=== PATIENT | female | born 1970 | race Caucasian/White ===

== ENCOUNTER 2018-01-31 10:13 | Inpatient (IN) | payer OTHER, SELFPAY ==
[2018-01-29 11:29] LABS: Hematocrit 38.2 % (37-47); Hemoglobin 12.6 g/dl (12.0-15.0); Mean Platelet Vol. 9.8 fl (6.2-12.0); Platelet Count 359 K/mm3 (150-450); RBC Distribution Width CV 13.4 % (11.6-14.6); Red Blood Count 4.34 M/mm3 (4.2-5.4); Scan Indicated on CBC? Y/N NO
[2018-01-29 11:35] LABS: International Normalized Ratio 1.1; Prothrombin Time (Protime)PT. 13.8 SECONDS (11.7-14.9)
[2018-01-29 11:36] LABS: Partial Thromboplast Time 26.8 Seconds (24.1-36.2)
[2018-01-31] VITALS (11 sets, daily range): BP systolic 109–146; BP diastolic 69–90; PULSE 65–100; RESP 12–18; TEMP 36–37.1; O2SAT 94–100; BMI 28.8
[2018-01-31] MEDS: Phenazopyridine 95 MG Tablet 190 MG PO (06:34)
[2018-01-31] MEDS: Acetaminophen 500 MG Tablet 1000 MG PO ×3 (06:34→21:19)
[2018-01-31] MEDS: Celecoxib 200 MG Capsule 400 MG PO (06:35)
[2018-01-31 07:12] LABS: Internal QC Validated? YES +Cl - CLEAR BKGD; Pregnancy, Urine Negative Negative
--- NOTE | 2018-01-31 07:30 | HYST_PTH ---
PATIENT: VENICE HENDRICKS LOC: [facility] U#:[id number] AGE/SX: 47/F ROOM: AR305 RE01/31/[address]: Dr. Lizzy Glass MD : 1970 BED: 1 DIS: 02/09/2018 SPEC #: [id number] RECD: 01/31/18 11:23 STATUS: ERIC REMayra #: [id number] TIBURCIO: 01/31/18 07:[address]: Lizzy Glass DEPT: SURGICAL PATHOLOGY RECD BY: Frederick Naranjo ENTERED: 01/31/18 11:23 SP TYPE: HYSTERECT OTHR DR: Dr. Luis Babin, DO Tissues: Uterus, NOS Procedures: Surgery Specimen Level V HEADER OPERATION: Attempted laparoscopic hysterectomy, total abdominal hysterectomy, bilateral salpingectomy and right oophorectomy PRE-OP DIAGNOSIS: Menorrhagia, failed ablation, adenomyosis of the uterus, intramural uterine fibroid TISSUE SUBMITTED: Uterus, cervix, bilateral fallopian tubes MICROSCOPIC DIAGNOSIS Uterus, cervix and bilateral fallopian tubes and right ovary, total abdominal hysterectomy, bilateral salpingectomy and right oophorectomy: Cervix ? mild chronic cystic cervicitis. Endometrium ? secretory endometrium. Myometrium ? intramural leiomyoma (5.2 cm in greatest dimension). - Adenomyosis. Bilateral fallopian tubes - no pathologic diagnosis. Right ovary - no pathologic diagnosis. Bilateral paratubal cysts. GERI:jackeline 02/01/18 MICROSCOPIC DESCRIPTION Slides are reviewed. GROSS DESCRIPTION Received in fixative is one container labeled with the patient's name and designated uterus. The specimen consists of a uterus with detached cervix measuring 13 x 8 x 7.7 cm and weighing 268 gm. The endocervical canal measures 3.8 cm in length and is grossly unremarkable. The elongated endometrial cavity measures 5.5 cm in length and 3 cm in width. The reddish-aquino endometrium measures up to 0.2 cm in thickness. The myometrium measures 2.2 cm in average thickness and is distorted by a single, intramural, rubbery pink-aquino mass measuring 5.2 x 4.5 cm. Serial sections of the mass reveal a rubbery cut surface without areas of cyst formation, necrosis or hemorrhage. Also present in the container is a right ovary with adjacent right fallopian tube. The ovary measures 3.4 x 2 x 1.2 cm and serial sections reveal a blood-filled cyst measuring 2.2 cm in greatest dimension. The adjacent right fallopian tube measures 5 cm in length and 0.7 cm in average diameter. No tubo-ovarian adhesions are seen and fimbriated end has a normal villous appearance. In the mid portion of the soft tissue of the fallopian tube is a smooth, glistening cyst measuring 1.3 cm and containing clear fluid. Also present free in the container is the left fallopian tube which is similar in appearance to right tube and measures 6 cm in length and 1 cm in average diameter. The mid portion likewise contains a smooth, glistening cyst containing clear fluid. The cyst measures 1 cm in greatest dimension. Early Childhood Specialist sections are submitted in ten cassettes as follows: 1 - anterior cervix, 2 - posterior cervix, 3 & 4 - anterior uterine wall, 5 & 6 - posterior uterine wall, 7 & 8 ? myometrial mass, 9 ? right fallopian tube, ovary and paratubal cyst, 10- left fallopian tube and paratubal cyst. / AM:jackeline 01/31/18 TC:1 CPT: 66988
[2018-01-31] MEDS: Clindamycin 900 MG/50 ML BAG 75 MG IV (07:35)
[2018-01-31] MEDS: Lubricating Jelly 60 GM Tube 30 GM TOPICAL (07:56)
[2018-01-31] MEDS: Bupivacaine Mpf 0.5% 30 ML VIAL (08:22)
--- NOTE | 2018-01-31 10:18 | PCM.OPRPT ---
Report of Operation Date of Procedure: 01/31/18 Pre-Operative Diagnosis: menorrhagia, intramural uterine fibroid, adenomyosis of the uterus, post ablation syndrome (s/p endometrial ablation) Post-Operative Diagnosis: Same + endometriosis of bilateral tubes and ovaries and peritoneal surfaces of pelvis Surgery/Procedure Performed:: TLH convereted to [place], bilateral salpingectomy, right oophorectomy and cystoscopy Description of Surgical Findings:: Enlarged boggy uterus, large fundal fibroid. Ovaries and tubes bilaterally adhered to the pelvic sidewall and posterior uterus. Endometriosis noted of both tubes and ovaries and the posterior cul-de-sac and pelvic sidewalls. Posterior cul-de-sac was obliterated. consulting database administrator: Mita Lopez consulting database administrator: Yue Marin Type of Anesthesia:: General Anesthesiologist: Corbin Rodriguez Special Medications: none Specimen's removed: uterus, cervix, bilateral tubes, right ovary Drains: allison Estimated Blood Loss (mL): 350 Fluids Replaced: 2100 cc Description of Procedure: The patient was taken to the operating room where she was prepped and draped in the dorsal lithotomy position. Her arms were tucked to the side and padded and her legs were placed in the yellowfin stirrups. The VAC pad was used to secure the patient. Care was taken to ensure that she was placed in a neurologically safe and neutral position. A weighted speculum was placed in the vagina and the anterior lip of the cervix was grasped with a single-tooth tenaculum. The cervix sounded to 5 centimeters. Could not enter the endometrial cavity with the uterine manipulator due to her previous endometrial ablation. It was inserted to 5 cm and the balloon was inflated. Two 0 Vicryl sutures were secured to the cervix at 3 and 9:00. The medium V CARE placed into the cervix and the balloon inflated. The stay sutures were placed through the cup and secured down to the cervix. Once the V-Care was secured to the cervix the Allison catheter was placed to straight drain. Attention was turned to the abdominal portion of the case. Before skin incisions were made they were infiltrated with 0.5% Marcaine solution for local anesthetic. A 5 mm [intraumbilical] incision was made and while tenting the anterior abdominal wall up with towel clamps a 5 mm blade less trocar and sleeve were advanced directly into the peritoneal cavity. Peritoneal placement was confirmed with the laparoscope the pneumoperitoneum was created, and the underlying abdominal contents were intact. The patient was placed in Trendelenburg and the above findings were noted. Right and left lateral 5 mm trochars were placed under direct visualization without difficulty. After some manipulation of the uterus the decision was made to place a fourth port in the left upper quadrant to place a 3 to help with uterine manipulation. The bowel was swept away and the above findings were noted. We attempted to dissect the ovaries off the posterior uterine wall with blunt and sharp dissection. We are having difficulty manipulating the uterus due to its bulk size and the adhesions from the endometriosis. In addition the uterine manipulator was not able to be placed to the fundus due to her previous ablation and the location of the fibroids. At this point, the decision was made to turn to total abdominal hysterectomy visualization and manipulation of the instruments was inadequate to proceed further laparoscopically. The bladder flap was rechecked and found to be adequately down. The monopolar tip of the LigaSure device was then used to enter the anterior vagina. The vaginal manipulator cup was noted in the vaginal colpotomy incision was made circumferentially around the cup. When the 3 and 9:00 positions of the cervicovaginal junction were reached these were clamped sealed and transected with the LigaSure device to secure any small remaining vessels. At this point the pedicles were hemostatic from above and attention was turned to the vaginal portion of the case again. The uterus was brought intact out through the vaginal colpotomy incision along with the tubes There is some bleeding from the left vaginal cuff angle and this was grasped with an Allis clamp. Vaginal angle sutures were placed on both sides with 0 Vicryl sutures and care was taken to ensure that the uterosacral ligament was secured into this stitch. The remainder the vagina was then closed horizontally with interrupted 0 Vicryl sutures. The cuff was hemostatic vaginally. The Allison catheter was removed and a cystoscopy was performed. The bladder appeared normal and was intact. Both ureteral orifices were noted and both ureteral jets were seen. The cystoscope was removed and the Allison catheter was placed back to straight drain. A sponge stick was placed in the vagina to help place traction against the vaginal cuff and the pneumoperitoneum was re-created. The suction senior licensing manager was used to remove any blood and clots from the peritoneal cavity. The pedicles were reexamined and found to be hemostatic. The vaginal cuff was hemostatic. Some Jj was placed over the cuff and the pedicles and no active bleeding was noted through the Jj. The right and left lateral ports were taken out and the sites were hemostatic. The pneumoperitoneum was released and even under low pressure there was no bleeding of any of the pedicles are vaginal cuff. The umbilical port was removed. The umbilical skin incisions were closed with Monocryl suture and skin glue by [Dr. Hutchins]. The vaginal instruments were removed by me and a vaginal sweep was completed by me. The surgery was performed by me with assistance other than the portions dictated as above. There were no qualified residents available for this procedure. All sponge lap and needle counts were correct and the patient was transferred to the recovery room in stable condition. Grafts/Implants Used: none - Complications none - Admit VTE Documentation VTE Present on Admission: No VTE Mechan Device Prophylaxis: SCD's VTE Pharm Prophylaxis ordered?: Yes
[2018-01-31] MEDS: Ketorolac 30 MG/ML Syringe IV ×3 (11:16→23:31)
[2018-01-31] MEDS: Ondansetron 4 MG/2 ML Vial IV (13:46)
[2018-01-31] MEDS: Lactated Ringers 1,000 ML 100 ML IV (14:56)
[2018-01-31] MEDS: HYDROmorphone 1 MG/ML Syringe IV (15:49)
[2018-01-31] MEDS: proMETHazine 25 MG/ML Syringe 12.5 MG IV (18:07)
[2018-01-31] MEDS: 0.9% NaCl Peripheral Flush Adult/Peds IV (18:08)
--- NOTE | 2018-01-31 19:27 | PCM.PN.OB ---
Subjective: Pain controlled. No N/V. Very tired. No SOB/CP - Physical Exam General: Cooperative, No apparent distress, - - awakens easily Abdomen: Soft, Non-Distended, Tender - appropriately Skin: Incision - bandage clean, dry and intact. Small incisions intact w/ skin glue Vital Signs Temp Pulse Resp BP Pulse Ox 98.7 F 100 16 122/72 H 95 01/31/18 15:54 01/31/18 15:54 01/31/18 15:54 01/31/18 15:54 01/31/18 15:54 Oxygen Delivery Method Room Air Weight: 80.9 kg Body Mass Index (BMI) 28.8 Intake and Output for Last 24 Hours 01/29/18 01/30/18 01/31/18 23:59 23:59 23:59 Intake Total 3104 / 3104 Output Total 600 / 600 Balance 2504 / 2504 Laboratory Tests Past 24 Hrs 01/31/18 06:50 Urine Test Negative Medical Necessity - Tobacco Use Smoking Status: Never smoker Assessment/Plan POD#0 s/p TLH converted to [place]/bilateral salpingectomy, right oophorectomy due to fibroids, adenomyosis and endometriosis w/ adhesions operative course and findings reviewed routine care cbc in am february d/c tomorrow if does well
[2018-01-31] MEDS: Docusate Sodium 100 MG Capsule PO (21:19)
[2018-01-31] MEDS: Senna/Docusate Sodium 1 Tablet PO (21:19)
[2018-02-01] MEDS: 0.9% NaCl Peripheral Flush Adult/Peds IV ×6 (01:05→21:34)
[2018-02-01] MEDS: HYDROmorphone 1 MG/ML Syringe IV ×3 (01:05→21:34)
[2018-02-01] MEDS: Lactated Ringers 1,000 ML 100 ML IV (01:05)
[2018-02-01 02:15] VITALS: BP 94/52; PULSE 82; RESP 16; TEMP 37.1; O2SAT 97
[2018-02-01] MEDS: Ketorolac 30 MG/ML Syringe IV (05:37)
[2018-02-01] MEDS: Enoxaparin 40 MG/0.4 ML Syringe SC (05:37)
[2018-02-01] MEDS: Acetaminophen 500 MG Tablet 1000 MG PO ×2 (06:56→15:15)
[2018-02-01 07:05] VITALS: O2SAT 98
[2018-02-01 07:05] LABS: Hematocrit 34.1 % (37-47); Hemoglobin 11.3 g/dl (12.0-15.0); Mean Corp Hgb Conc 33.1 g/gl (32-36); Mean Corpuscular Volume 87.7 fL (81-99); Mean Platelet Vol. 9.7 fl (6.2-12.0); Platelet Count 341 K/mm3 (150-450); RBC Distribution Width CV 13.7 % (11.6-14.6); RBC Distribution Width SD 43.7 fl (35.1-43.9); Red Blood Count 3.89 M/mm3 (4.2-5.4); White Blood Count 11.6 K/mm3 (4.4-11.0)
[2018-02-01 07:06] LABS: Scan Indicated on CBC? Y/N NO
[2018-02-01 08:21] VITALS: BP 101/55; PULSE 77; RESP 16; TEMP 36.7; O2SAT 98
[2018-02-01] MEDS: Docusate Sodium 100 MG Capsule PO (08:28)
[2018-02-01] MEDS: Senna/Docusate Sodium 1 Tablet PO (08:28)
--- NOTE | 2018-02-01 08:49 | PCM.PN.OB ---
Subjective: pain well controlled, average lochia, no N/V. No CP or SOB - Physical Exam General: Alert, Cooperative, No apparent distress Abdomen: Soft, Distended - mildly, softly, Tender - appropriately Skin: Incision - they are clean, dry and intact w/ skin glue Vital Signs Temp Pulse Resp BP Pulse Ox 98.1 F 77 16 101/55 L 98 02/01/18 08:21 02/01/18 08:21 02/01/18 08:21 02/01/18 08:21 02/01/18 08:21 Oxygen Delivery Method Room Air Weight: 80.9 kg Body Mass Index (BMI) 28.8 Intake and Output for Last 24 Hours 01/30/18 01/31/18 02/01/18 23:59 23:59 23:59 Intake Total 4512 / 4512 874 / 874 Output Total 1250 / 1250 1350 / 1350 Balance 3262 / 3262 -476 / -476 Laboratory Tests Past 24 Hrs 02/01/18 06:10 WBC 11.6 H RBC 3.89 L Hgb 11.3 L Hct 34.1 L MCV 87.7 MCH 29.0 MCHC 33.1 RDW 13.7 RDW Differential 43.7 Plt Count 341 MPV 9.7 Medical Necessity - Tobacco Use Smoking Status: Never smoker Assessment/Plan POD#1 doing well llikely d/c home after lunch if does well w/ ambulation and po intake. D/c instructions reveiwed. questions answered
--- NOTE | 2018-02-01 08:51 | PCM.DC.AHY ---
Discharge Diet: No Restrictions Discharge Activity: Return to Normal Activity, May Not Drive - while taking narcotic pain medications., May Shower May resume sexual activity in: 6-8 weeks Call your doctor if your incision/area has: Continuous Slow Oozing, Sudden Increased Bleeding, Increased Pain/ Swelling, Increased Redness, Foul Smelling Discharge Call your doctor if you observe: Fever of 101 or Higher, Inability to urinate, Inability to have a bowel movement, Using more than one pad per hour Cleanse incision/area with: Soap & Water, - - your incisions have skin glue, it can get wet, pat it dry. Leave it on for 10-14 days Allergies/Adverse Reactions: Allergies nitrofurantoin [From Macrobid] Allergy (Verified 01/24/18 09:40) Hives paroxetine [From Paxil] Allergy (Verified 01/24/18 09:40) Hives Penicillins Allergy (Verified 01/24/18 09:40) Hives Sulfa (Sulfonamide Antibiotics) Allergy (Verified 01/24/18 09:40) Hives Medications to take at Discharge Acetaminophen [Tylenol] 500 - 1,000 mg PO Q6H PRN PRN 01/24/18 Lorazepam [Ativan] 0.5 mg PO DAILY PRN PRN 01/24/18 Naproxen Sodium [Naproxen Sodium Ds] 550 mg PO BID PRN PRN 01/24/18 Tranexamic Acid 1,300 mg PO TID PRN 01/24/18 Primary Care Physician: Luis Babin DO [Primary Care Provider] - Please Follow Up With: Lizzy Glass MD - [phone] When: 1-2 and 6 weeks
--- NOTE | 2018-02-01 12:16 | CASEMGMT ---
Chart review completed at this time. Patient was admitted for s/p [place]. Patient lives at home with who can assist with care. No discharge needs identified at this time. RN CM will remain available should discharge needs arise.
[2018-02-01] MEDS: Ketorolac 10 MG Tablet PO (12:41)
[2018-02-01] MEDS: oxyCODONE 5 MG Tablet PO (12:41)
[2018-02-01 13:54] VITALS: BP 110/69; PULSE 85; RESP 20; TEMP 36.7; O2SAT 98
[2018-02-01] MEDS: Ondansetron 4 MG/2 ML Vial IV ×2 (17:06→21:34)
[2018-02-01 17:09] VITALS: BP 124/73; PULSE 85; RESP 20; TEMP 36.9; O2SAT 98
[2018-02-01] MEDS: Lactated Ringers 1,000 ML 75 ML IV (17:54)
[2018-02-01] MEDS: proMETHazine 25 MG/ML Syringe 12.5 MG IV (18:05)
[2018-02-01 20:55] VITALS: BP 105/65; PULSE 82; RESP 18; TEMP 36.8; O2SAT 97
[2018-02-02] VITALS (7 sets, daily range): BP systolic 103–135; BP diastolic 68–79; PULSE 70–99; RESP 16–18; TEMP 36.6–37.6; O2SAT 92–95
[2018-02-02] MEDS: 0.9% NaCl Peripheral Flush Adult/Peds IV ×2 (02:53→06:23)
[2018-02-02] MEDS: proMETHazine 25 MG/ML Syringe 12.5 MG IV ×3 (02:53→18:01)
[2018-02-02] MEDS: Enoxaparin 40 MG/0.4 ML Syringe SC (06:23)
[2018-02-02] MEDS: Ondansetron 4 MG/2 ML Vial IV ×2 (06:23→15:19)
[2018-02-02] MEDS: Lactated Ringers 1,000 ML 75 ML IV (06:24)
[2018-02-02] MEDS: HYDROmorphone 1 MG/ML Syringe IV (08:12)
--- NOTE | 2018-02-02 10:01 | PCM.PN.OB ---
Subjective: PAIN OK EXCEPT WHEN EMESIS - Physical Exam General: Alert, Cooperative, No apparent distress Abdomen: Soft, Distended - MODERATELY, SOFTLY, Tender - APPROPRIATLEY Extremities: No edema Skin: Incision - CLEAN, DRY INTAC Vital Signs Temp Pulse Resp BP Pulse Ox 99.7 F H 99 18 132/79 H 93 02/02/18 06:26 02/02/18 06:26 02/02/18 06:26 02/02/18 06:26 02/02/18 08:14 Oxygen Delivery Method Room Air Weight: 80.9 kg Body Mass Index (BMI) 28.8 Intake and Output for Last 24 Hours 01/31/18 02/01/18 02/02/18 23:59 23:59 23:59 Intake Total 4512 / 4512 2584 / 2584 1025 / 1025 Output Total 1250 / 1250 3285 / 3285 650 / 650 Balance 3262 / 3262 -701 / -701 375 / 375 Medical Necessity - Tobacco Use Smoking Status: Never smoker Assessment/Plan pod#2 S/P [place], ILEUS CHANGE IVF CHECK LABS CLEARS ONLY FOR NOW LIKELY WILL STAY UNTIL TOMORROW ADD SCOPALAMINE PATCH
[2018-02-02] MEDS: Senna/Docusate Sodium 1 Tablet PO (10:27)
[2018-02-02] MEDS: Ketorolac 10 MG Tablet PO ×2 (10:27→18:12)
[2018-02-02] MEDS: Docusate Sodium 100 MG Capsule PO (10:27)
[2018-02-02 10:42] LABS: Hematocrit 35.8 % (37-47); Hemoglobin 11.9 g/dl (12.0-15.0); Mean Corp Hgb Conc 33.2 g/gl (32-36); Mean Corpuscular Hgb 29.5 pg (27.0-32.0); Mean Corpuscular Volume 88.8 fL (81-99); Mean Platelet Vol. 9.2 fl (6.2-12.0); Platelet Count 380 K/mm3 (150-450); RBC Distribution Width CV 13.7 % (11.6-14.6); RBC Distribution Width SD 44.1 fl (35.1-43.9); Red Blood Count 4.03 M/mm3 (4.2-5.4); Scan Indicated on CBC? Y/N NO
[2018-02-02 10:59] LABS: Anion Gap 8 (5-15); BUN 12 mg/dL (7-18); BUN/Creat Ratio 12.3 RATIO (10-20); Calcium,Total 8.8 mg/dL (8.5-10.1); Chloride 105 mmol/L (98-107); Creatinine, Serum 0.98 mg/dL (0.55-1.02); EST Glomerular Filtration Rate 65 mL/min (>60); Est Glom Filt Rate - Afr Amer 79 mL/min (>60); Estimated Creatinine Clearance 66.44 ml/min; Glucose 122 mg/dL (74-106); Potassium 3.9 mmol/L (3.5-5.1); Sodium Level 140 mmol/L (136-145)
[2018-02-02] MEDS: Scopolamine 1mg/72hr Patch 1 PATCH TD (11:05)
[2018-02-02] MEDS: Acetaminophen 500 MG Tablet 1000 MG PO ×2 (13:12→22:47)
[2018-02-02] MEDS: oxyCODONE 5 MG Tablet PO (13:13)
--- NOTE | 2018-02-02 20:51 | PCM.PN.BLA ---
Progress Note Mild nausea now Pain controlled couldn't urinate still,allison back in will allow ice chips only, IVF, antiemetics and reeval tomorrow am labs ordered patient agrees w/ plan
[2018-02-02] MEDS: Zolpidem Tartrate 5 MG Tablet PO (22:48)
[2018-02-03] MEDS: 0.9% NaCl Peripheral Flush Adult/Peds IV ×5 (02:45→22:23)
[2018-02-03] MEDS: proMETHazine 25 MG/ML Syringe 12.5 MG IV ×3 (02:45→22:22)
[2018-02-03 03:06] VITALS: BP 119/70; PULSE 79; RESP 16; TEMP 36.9; O2SAT 97
[2018-02-03] MEDS: Ondansetron 4 MG/2 ML Vial IV ×2 (05:29→12:29)
[2018-02-03] MEDS: Enoxaparin 40 MG/0.4 ML Syringe SC (05:38)
[2018-02-03 06:43] LABS: Anion Gap 9 (5-15); BUN 10 mg/dL (7-18); BUN/Creat Ratio 11.5 RATIO (10-20); Calcium,Total 8.3 mg/dL (8.5-10.1); Chloride 105 mmol/L (98-107); Creatinine, Serum 0.87 mg/dL (0.55-1.02); EST Glomerular Filtration Rate 74 mL/min (>60); Est Glom Filt Rate - Afr Amer 90 mL/min (>60); Estimated Creatinine Clearance 74.84 ml/min; Glucose 108 mg/dL (74-106); Potassium 3.6 mmol/L (3.5-5.1); Sodium Level 141 mmol/L (136-145)
[2018-02-03 06:46] LABS: Hematocrit 34.1 % (37-47); Hemoglobin 11.1 g/dl (12.0-15.0); Mean Corp Hgb Conc 32.6 g/gl (32-36); Mean Corpuscular Hgb 29.5 pg (27.0-32.0); Mean Corpuscular Volume 90.7 fL (81-99); Mean Platelet Vol. 10.2 fl (6.2-12.0); Platelet Count 362 K/mm3 (150-450); RBC Distribution Width CV 13.8 % (11.6-14.6); RBC Distribution Width SD 44.7 fl (35.1-43.9); Red Blood Count 3.76 M/mm3 (4.2-5.4); White Blood Count 11.6 K/mm3 (4.4-11.0)
[2018-02-03 06:54] LABS: Scan Indicated on CBC? Y/N NO
[2018-02-03] MEDS: HYDROmorphone 1 MG/ML Syringe IV ×2 (07:02→14:30)
[2018-02-03 08:33] VITALS: BP 117/72; PULSE 71; RESP 16; TEMP 37.2; O2SAT 94
--- NOTE | 2018-02-03 11:32 | RAD_ITS ---
STUDY: X-RAY - ABDOMEN/PELVIS REASON FOR EXAM: Female, 47 years old. NG tube placement, hysterectomy 3 days ago TECHNIQUE: AP supine and upright views of the abdomen and pelvis. COMPARISON: None. FINDINGS: Normal visualized lung bases. There are multiple dilated small bowel loops with air-fluid levels. This may represent diffuse postoperative ileus but small bowel obstruction cannot be excluded. An enteric tube is seen within the stomach. There is no demonstrated free abdominal air. The visualized liver, spleen and kidneys are grossly normal in size and morphology. There are multiple small gallstones present. Normal visualized osseous structures. RAD/Abd Inc Decub and/or Erect IMPRESSION: The enteric tube is within the stomach. Findings suggest either diffuse postoperative ileus or small bowel obstruction. Cholelithiasis. Electronically Signed: Max Hauser DO at 14:27 EDT Tel , Service support ,
--- NOTE | 2018-02-03 13:26 | NURSING ---
radiology called, aware that NG is in place.
[2018-02-03 14:30] VITALS: BP 135/82; PULSE 86; RESP 16; TEMP 37.2; O2SAT 96
--- NOTE | 2018-02-03 17:21 | PCM.PN.OB ---
Subjective: Pain well controlled, nausea better after episode of emesis w/ NG placement. No other c/o. No SOB. - Physical Exam General: Alert, Cooperative, No apparent distress Abdomen: Distended - moderately, firmly, no rebound or guarding Extremities: Edema - 1+ lower extremity edema Skin: Incision - clean, dry and intact Vital Signs Temp Pulse Resp BP Pulse Ox 98.9 F 86 16 135/82 H 96 02/03/18 14:30 02/03/18 14:30 02/03/18 14:30 02/03/18 14:30 02/03/18 14:30 Oxygen Delivery Method Room Air Weight: 80.9 kg Body Mass Index (BMI) 28.8 Intake and Output for Last 24 Hours 02/01/18 02/02/18 02/03/18 23:59 23:59 23:59 Intake Total 2584 / 2584 2592 / 2592 3286 / 3286 Output Total 3285 / 3285 1625 / 1625 750 / 750 Balance -701 / -701 967 / 967 2536 / 2536 Laboratory Tests Past 24 Hrs 02/03/18 02/03/18 05:13 05:13 WBC 11.6 H RBC 3.76 L Hgb 11.1 L Hct 34.1 L MCV 90.7 MCH 29.5 MCHC 32.6 RDW 13.8 RDW Differential 44.7 H Plt Count 362 MPV 10.2 Sodium 141 Potassium 3.6 Chloride 105 Carbon Dioxide 27.0 Anion Gap 9 BUN 10 Creatinine 0.87 Estim Creat Clear Calc 74.84 Est GFR (MDRD) Af Amer 90 Est GFR (MDRD) Non-Af 74 BUN/Creatinine Ratio 11.5 Glucose 108 H Calcium 8.3 L Medical Necessity - Tobacco Use Smoking Status: Never smoker Assessment/Plan 47 YOF POD#3 s/p [place] w/ postop ileus NG in cont. IVF cont. to monitor Isand Os. Repeat abd. films and BMP in am allison out, hopefully will be able to pass voiding trial today cont. to ambulate
[2018-02-03 20:56] VITALS: BP 125/68; PULSE 77; RESP 16; TEMP 37; O2SAT 99
[2018-02-03] MEDS: Zolpidem Tartrate 5 MG Tablet PO (22:17)
[2018-02-03] MEDS: Acetaminophen 500 MG Tablet 1000 MG PO (22:17)
[2018-02-04] MEDS: HYDROmorphone 1 MG/ML Syringe IV (00:12)
[2018-02-04] MEDS: 0.9% NaCl Peripheral Flush Adult/Peds IV (00:12)
[2018-02-04] MEDS: proCHLORPERazine 10 MG/2 ML Vial IV (00:12)
[2018-02-04 03:00] VITALS: BP 130/79; PULSE 72; RESP 16; TEMP 36.9; O2SAT 97
--- NOTE | 2018-02-04 05:55 | RAD_ITS ---
STUDY: X-RAY - ABDOMEN/PELVIS REASON FOR EXAM: Female, 47 years old. Nausea and vomiting. TECHNIQUE: AP supine and upright views of the abdomen and pelvis. COMPARISON: Comparison is made with prior examination dated February 03, 2018. FINDINGS: A nasogastric tube is in situ with the tip in the fundal portion of the stomach. Once again, there is evidence of a multiple dilated small bowel loops with air-fluid levels. A small amount of gas and fecal material is seen in the colon. This may represent either postoperative ileus versus progression is small bowel obstruction. Further follow-up is recommended. There is no demonstrated free abdominal air. Multiple gallstones are seen. Normal soft tissue structures. Normal visualized osseous structures. RAD/Abd Inc Decub and/or Erect IMPRESSION: Slight progression in the distended small bowel loops with multiple air-fluid levels as described. Further follow-up is recommended. Cholelithiasis. Electronically Signed: Lei Jimenez MD at 8:27 EDT Tel [phone], Service support ,
[2018-02-04] MEDS: Enoxaparin 40 MG/0.4 ML Syringe SC (06:25)
[2018-02-04] MEDS: oxyCODONE 5 MG Tablet PO ×3 (07:07→19:57)
[2018-02-04 07:32] LABS: Anion Gap 9 (5-15); BUN 7 mg/dL (7-18); BUN/Creat Ratio 8.8 RATIO (10-20); Calcium,Total 8.3 mg/dL (8.5-10.1); Chloride 109 mmol/L (98-107); EST Glomerular Filtration Rate 82 mL/min (>60); Est Glom Filt Rate - Afr Amer 99 mL/min (>60); Estimated Creatinine Clearance 81.38 ml/min; Glucose 91 mg/dL (74-106); Potassium 4.3 mmol/L (3.5-5.1); Sodium Level 141 mmol/L (136-145)
[2018-02-04 07:36] VITALS: BP 121/81; PULSE 89; RESP 16; TEMP 37.1; O2SAT 95
--- NOTE | 2018-02-04 08:52 | PCM.PN.OB ---
Subjective: Pain well controlled. No dry heaving overnight. Nausea better. Does get some nausea when tube clamped. Urinated x 3 now. No flatus. No CP or SOB or cough. - Physical Exam General: Alert, Cooperative, No apparent distress Abdomen: Soft, Distended - moderately, moderately firm, slightly less distended than yesterday, Tender - appropriately Extremities: Edema - trace Skin: Incision - clean, dry and intact, some bruising Vital Signs Temp Pulse Resp BP Pulse Ox 98.8 F 89 16 121/81 H 95 02/04/18 07:36 02/04/18 07:36 02/04/18 07:36 02/04/18 07:36 02/04/18 07:36 Oxygen Delivery Method Room Air Weight: 83.1 kg Body Mass Index (BMI) 28.8 Intake and Output for Last 24 Hours 02/02/18 02/03/18 02/04/18 23:59 23:59 23:59 Intake Total 2592 / 2592 3915 / 3915 2135 / 2135 Output Total 1625 / 1625 1250 / 1250 930 / 930 Balance 967 / 967 2665 / 2665 1205 / 1205 Laboratory Tests Past 24 Hrs 02/04/18 07:00 Sodium 141 Potassium 4.3 Chloride 109 H Carbon Dioxide 23.0 Anion Gap 9 BUN 7 Creatinine 0.80 Estim Creat Clear Calc 81.38 Est GFR (MDRD) Af Amer 99 Est GFR (MDRD) Non-Af 82 BUN/Creatinine Ratio 8.8 L Glucose 91 Calcium 8.3 L Medical Necessity - Tobacco Use Smoking Status: Never smoker Assessment/Plan POD#4 s/p [place] postop ileus cont. IVF and NG and antiemetics cont. ambulation Labs/xrays reviewed
[2018-02-04 11:06] VITALS: BP 102/63; PULSE 73; RESP 16; TEMP 37.3; O2SAT 95
[2018-02-04 15:20] VITALS: BP 128/85; PULSE 85; RESP 18; TEMP 36.6; O2SAT 99
--- NOTE | 2018-02-04 18:04 | PCM.PN.OB ---
Subjective: Mild nausea, occas. abdominal cramping. incisional pain improving. No flatus. Urinating spontaneously - Physical Exam General: Alert, Cooperative, No apparent distress Abdomen: Hypoactive Bowel Sounds - scant distant sounds RUQ only appreciated, Distended - moderately, firmly, about the same as this am, Tender - appropriately Extremities: Edema - trace Skin: Incision - clean, dry and intact Vital Signs Temp Pulse Resp BP Pulse Ox 97.9 F 85 18 128/85 H 99 02/04/18 15:20 02/04/18 15:20 02/04/18 15:20 02/04/18 15:20 02/04/18 15:20 Oxygen Delivery Method Room Air Weight: 83.1 kg Body Mass Index (BMI) 28.8 Intake and Output for Last 24 Hours 02/02/18 02/03/18 02/04/18 23:59 23:59 23:59 Intake Total 2592 / 2592 3915 / 3915 2798 / 2798 Output Total 1625 / 1625 1250 / 1250 1380 / 1380 Balance 967 / 967 2665 / 2665 1418 / 1418 Laboratory Tests Past 24 Hrs 02/04/18 07:00 Sodium 141 Potassium 4.3 Chloride 109 H Carbon Dioxide 23.0 Anion Gap 9 BUN 7 Creatinine 0.80 Estim Creat Clear Calc 81.38 Est GFR (MDRD) Af Amer 99 Est GFR (MDRD) Non-Af 82 BUN/Creatinine Ratio 8.8 L Glucose 91 Calcium 8.3 L Medical Necessity - Tobacco Use Smoking Status: Never smoker Assessment/Plan POD#4 s/p [place] postop ileus cont. IVF and NG and antiemetics cont. ambulation Labs/xrays reviewed repeat labs in am CBC/BMP and abd. xrays if increased WBC or not improving in 24-[address] scan patient updated, questions answered, she understands plan
[2018-02-04 20:05] VITALS: BP 133/84; PULSE 82; RESP 16; TEMP 37.2; O2SAT 98
[2018-02-04] MEDS: proMETHazine 25 MG/ML Syringe 12.5 MG IV (21:27)
[2018-02-04] MEDS: Zolpidem Tartrate 5 MG Tablet PO (22:48)
[2018-02-04 23:45] VITALS: BP 127/75; PULSE 88; RESP 16; TEMP 37.6; O2SAT 98
--- NOTE | 2018-02-05 03:06 | NURSING ---
Patient up walking in hallways at this time.
[2018-02-05 03:59] VITALS: BP 120/72; PULSE 91; RESP 16; TEMP 37.1; O2SAT 97
[2018-02-05] MEDS: Enoxaparin 40 MG/0.4 ML Syringe SC (05:27)
[2018-02-05] MEDS: oxyCODONE 5 MG Tablet PO (05:30)
[2018-02-05 05:35] LABS: Hematocrit 33.8 % (37-47); Hemoglobin 10.9 g/dl (12.0-15.0); Mean Corp Hgb Conc 32.2 g/gl (32-36); Mean Corpuscular Hgb 28.9 pg (27.0-32.0); Mean Corpuscular Volume 89.7 fL (81-99); Mean Platelet Vol. 8.7 fl (6.2-12.0); Platelet Count 336 K/mm3 (150-450); RBC Distribution Width CV 13.7 % (11.6-14.6); RBC Distribution Width SD 45.2 fl (35.1-43.9); Red Blood Count 3.77 M/mm3 (4.2-5.4); White Blood Count 9.9 K/mm3 (4.4-11.0)
[2018-02-05 05:36] LABS: Scan Indicated on CBC? Y/N NO
[2018-02-05 05:49] LABS: Anion Gap 7 (5-15); BUN 4 mg/dL (7-18); BUN/Creat Ratio 5.2 RATIO (10-20); Calcium,Total 8.2 mg/dL (8.5-10.1); Chloride 105 mmol/L (98-107); Creatinine, Serum 0.76 mg/dL (0.55-1.02); EST Glomerular Filtration Rate 86 mL/min (>60); Est Glom Filt Rate - Afr Amer 104 mL/min (>60); Estimated Creatinine Clearance 85.67 ml/min; Glucose 105 mg/dL (74-106); Potassium 4.3 mmol/L (3.5-5.1); Sodium Level 138 mmol/L (136-145)
[2018-02-05 07:38] VITALS: BP 134/88; PULSE 88; RESP 16; TEMP 38; O2SAT 97
[2018-02-05] MEDS: proCHLORPERazine 10 MG/2 ML Vial IV (07:54)
[2018-02-05] MEDS: 0.9% NaCl Peripheral Flush Adult/Peds IV ×2 (07:55→13:28)
--- NOTE | 2018-02-05 08:56 | RAD_ITS ---
STUDY: X-RAY - ABDOMEN/PELVIS REASON FOR EXAM: Female, 47 years old. Abdominal distention. TECHNIQUE: AP supine and upright views of the abdomen and pelvis. COMPARISON: Comparison is made with prior study dated February 04, 2018. FINDINGS: The tip of nasogastric tube is in the fundal portion of the stomach. At this time, there is less gaseous distention of the small bowel. Gas is seen in the colon. This most likely represents a resolving partial small bowel obstruction or ileus. There is no demonstrated free abdominal air. Multiple small calcified gallstones. Normal soft tissue structures. Normal visualized osseous structures. RAD/Abd Inc Decub and/or Erect IMPRESSION: Improving small bowel gas pattern. Electronically Signed: Lei Jimenez MD at 7:58 EDT Tel [phone], Service support ,
--- NOTE | 2018-02-05 09:05 | PCM.PN.OB ---
Subjective: nausea improving slowly. No emesis yesterday/last night. Small flatus, no stool. Ambulating. Pain well controlled - Physical Exam General: Alert, Cooperative, No apparent distress Abdomen: Soft, Distended - moderately, slightly more soft than yesterday, Tender - appropriately Extremities: Edema - trace Skin: Incision - clean, dry and intact, small bruising of abd. Vital Signs Temp Pulse Resp BP Pulse Ox 100.4 F H 88 16 134/88 H 97 02/05/18 07:38 02/05/18 07:38 02/05/18 07:38 02/05/18 07:38 02/05/18 07:38 Oxygen Delivery Method Room Air Weight: 83.1 kg Body Mass Index (BMI) 28.8 Intake and Output for Last 24 Hours 02/03/18 02/04/18 02/05/18 23:59 23:59 23:59 Intake Total 3915 / 3915 4732 / 4732 90 / 90 Output Total 1250 / 1250 3830 / 3830 800 / 800 Balance 2665 / 2665 902 / 902 -710 / -710 Laboratory Tests Past 24 Hrs 02/05/18 02/05/18 05:25 05:25 WBC 9.9 RBC 3.77 L Hgb 10.9 L Hct 33.8 L MCV 89.7 MCH 28.9 MCHC 32.2 RDW 13.7 RDW Differential 45.2 H Plt Count 336 MPV 8.7 Sodium 138 Potassium 4.3 Chloride 105 Carbon Dioxide 26.0 Anion Gap 7 BUN 4 L Creatinine 0.76 Estim Creat Clear Calc 85.67 Est GFR (MDRD) Af Amer 104 Est GFR (MDRD) Non-Af 86 BUN/Creatinine Ratio 5.2 L Glucose 105 Calcium 8.2 L Medical Necessity - Tobacco Use Smoking Status: Never smoker Assessment/Plan POD#6 s/p [place] ileus seems to be mildly improved trial dulcolax decrease IVF ok for oral nsaids, try to decrease narcotics cont. to ambulate labs stable/as expected
--- NOTE | 2018-02-05 10:57 | NURSING ---
IV fluid rate changed from 150- 100cc at this time. MAR adjutsted for new bag to be hung at 1230
[2018-02-05] MEDS: Bisacodyl 10 MG Suppository RECTAL (11:01)
[2018-02-05] MEDS: Scopolamine 1mg/72hr Patch 1 PATCH TD (11:01)
[2018-02-05] MEDS: Acetaminophen 650 MG/20 ML UDC PO ×2 (13:21→21:09)
[2018-02-05] MEDS: proMETHazine 25 MG/ML Syringe 12.5 MG IV (13:28)
[2018-02-05 13:34] VITALS: BP 131/70; PULSE 90; RESP 18; TEMP 36.1; O2SAT 93
--- NOTE | 2018-02-05 18:57 | PCM.PN.OB ---
Subjective: Pain well controlled. Mild nausea. Slight hunger. Passing some flatus and 3 small Bms today, small amount of formed stool. No emesis - Physical Exam General: Alert, Cooperative, No apparent distress Abdomen: Distended - moderately but softer, Tender - appropriately Skin: Incision - clean, dry and intact w/ some bruising Vital Signs Temp Pulse Resp BP Pulse Ox 97 F L 90 18 131/70 H 93 02/05/18 13:34 02/05/18 13:34 02/05/18 13:34 02/05/18 13:34 02/05/18 13:34 Oxygen Delivery Method Room Air Weight: 83.1 kg Body Mass Index (BMI) 28.8 Intake and Output for Last 24 Hours 02/03/18 02/04/18 02/05/18 23:59 23:59 23:59 Intake Total 3915 / 3915 4732 / 4732 1079 / 1079 Output Total 1250 / 1250 3830 / 3830 1700 / 1700 Balance 2665 / 2665 902 / 902 -621 / -621 Laboratory Tests Past 24 Hrs 02/05/18 02/05/18 05:25 05:25 WBC 9.9 RBC 3.77 L Hgb 10.9 L Hct 33.8 L MCV 89.7 MCH 28.9 MCHC 32.2 RDW 13.7 RDW Differential 45.2 H Plt Count 336 MPV 8.7 Sodium 138 Potassium 4.3 Chloride 105 Carbon Dioxide 26.0 Anion Gap 7 BUN 4 L Creatinine 0.76 Estim Creat Clear Calc 85.67 Est GFR (MDRD) Af Amer 104 Est GFR (MDRD) Non-Af 86 BUN/Creatinine Ratio 5.2 L Glucose 105 Calcium 8.2 L Medical Necessity - Tobacco Use Smoking Status: Never smoker Assessment/Plan POD#6 s/p [place] ileus seems to be improving cont. to ambulate ok for clear liquids Cont. to ambulate may advance diet in am
--- NOTE | 2018-02-05 20:15 | NURSING ---
Patient ambulating in hallway at this time.
[2018-02-05 20:20] VITALS: BP 129/72; PULSE 87; RESP 16; TEMP 36.1; O2SAT 95
[2018-02-05 20:35] VITALS: RESP 16; O2SAT 95
--- NOTE | 2018-02-05 23:00 | NURSING ---
Per Dr. Glass restart patients NG tube at [facility]. NG tube flushed with 30mls. Explained to patient that she could still have sips and clears. Patient encouraged to avoid red liquids. Patient was okay with this. New IV started at this time as well.
[2018-02-05] MEDS: Ibuprofen 600 MG Tablet PO (23:13)
[2018-02-05] MEDS: Zolpidem Tartrate 5 MG Tablet PO (23:13)
[2018-02-06 02:15] VITALS: BP 117/76; PULSE 89; RESP 16; TEMP 36.8; O2SAT 98
[2018-02-06 02:20] VITALS: O2SAT 98
--- NOTE | 2018-02-06 05:37 | NURSING ---
Patient off floor at xray at this time.
--- NOTE | 2018-02-06 05:57 | NURSING ---
Patient returned from xray, patient up and walking in hallway prior to being reconnected to NG tube.
[2018-02-06 06:24] LABS: Hematocrit 33.6 % (37-47); Mean Corp Hgb Conc 32.7 g/gl (32-36); Mean Corpuscular Hgb 29.3 pg (27.0-32.0); Mean Corpuscular Volume 89.6 fL (81-99); Mean Platelet Vol. 9.9 fl (6.2-12.0); Platelet Count 413 K/mm3 (150-450); RBC Distribution Width CV 13.4 % (11.6-14.6); RBC Distribution Width SD 42.8 fl (35.1-43.9); Red Blood Count 3.75 M/mm3 (4.2-5.4); White Blood Count 9.5 K/mm3 (4.4-11.0)
[2018-02-06 06:34] LABS: Anion Gap 9 (5-15); BUN 4 mg/dL (7-18); BUN/Creat Ratio 5.8 RATIO (10-20); Calcium,Total 8.4 mg/dL (8.5-10.1); Chloride 107 mmol/L (98-107); Creatinine, Serum 0.69 mg/dL (0.55-1.02); EST Glomerular Filtration Rate 97 mL/min (>60); Est Glom Filt Rate - Afr Amer 118 mL/min (>60); Estimated Creatinine Clearance 94.36 ml/min; Glucose 105 mg/dL (74-106); Potassium 4.2 mmol/L (3.5-5.1); Sodium Level 139 mmol/L (136-145)
[2018-02-06 06:41] LABS: Scan Indicated on CBC? Y/N NO
[2018-02-06 07:27] VITALS: BP 134/86; PULSE 82; RESP 16; TEMP 37.1; O2SAT 100
--- NOTE | 2018-02-06 09:04 | RAD_ITS ---
STUDY: X-RAY - ABDOMEN/PELVIS REASON FOR EXAM: Female, 47 years old. Nausea and vomiting. TECHNIQUE: AP supine and upright views of the abdomen and pelvis. COMPARISON: Comparison is made with prior examination dated February 05, 2018. FINDINGS: Normal visualized lung bases. The tip of the nasogastric tube is in the fundal portion of the stomach. Stable appearance of the slightly dilated small bowel loops most multiple air-fluid levels. Gas is seen in the colon down to the rectum. There is no demonstrated free abdominal air. The visualized liver, spleen and kidneys are grossly normal in size and morphology. Normal soft tissue structures. Normal visualized osseous structures. RAD/Abd Inc Decub and/or Erect IMPRESSION: Stable examination. Probable ileus pattern. Electronically Signed: Lei Jimenez MD at 9:06 EDT Tel [phone], Service support ,
[2018-02-06] MEDS: Acetaminophen 650 MG/20 ML UDC PO ×3 (09:07→23:35)
[2018-02-06] MEDS: LORazepam 0.5 MG Tablet PO (10:25)
[2018-02-06 12:45] LABS: Magnesium 2.6 mg/dL (1.6-2.6)
[2018-02-06 13:17] VITALS: BP 125/80; PULSE 86; RESP 16; TEMP 37.4; O2SAT 95
--- NOTE | 2018-02-06 17:48 | NURSING ---
Dr. Glass in to see patient at this time- new order given to remove NG tube at this time. Same completed- patient tolerated well. Warm wash cloth given to wash face and ice chips and ice water given.
--- NOTE | 2018-02-06 19:03 | PCM.PN.OB ---
Subjective: Late entry. Patient seen by me at 1230 and 530. No emesis. No nausea. Not really hungry. Passing flatus throughout the day but no BMs since yesterday. Ambulating. Coughing from NG and Sneezing. Some anxiety from having NG in. - Physical Exam General: Alert, Cooperative, No apparent distress Abdomen: Soft, Distended - mild to moderate now, less than yesterday, Tender - appropriately Extremities: Edema - trace Skin: Incision - clean, dry and intact w/ some bruising Vital Signs Temp Pulse Resp BP Pulse Ox 99.3 F H 86 16 125/80 H 95 02/06/18 13:17 02/06/18 13:17 02/06/18 13:17 02/06/18 13:17 02/06/18 13:17 Oxygen Delivery Method Room Air Weight: 83.1 kg Body Mass Index (BMI) 28.8 Intake and Output for Last 24 Hours 02/04/18 02/05/18 02/06/18 23:59 23:59 23:59 Intake Total 4732 / 4732 2447 / 2447 1937 / 1937 Output Total 3830 / 3830 3500 / 3500 2550 / 2550 Balance 902 / 902 -1053 / -1053 -613 / -613 Laboratory Tests Past 24 Hrs 02/06/18 02/06/18 02/06/18 05:28 05:28 05:28 WBC 9.5 RBC 3.75 L Hgb 11.0 L Hct 33.6 L MCV 89.6 MCH 29.3 MCHC 32.7 RDW 13.4 RDW Differential 42.8 Plt Count 413 MPV 9.9 Sodium 139 Potassium 4.2 Chloride 107 Carbon Dioxide 23.0 Anion Gap 9 BUN 4 L Creatinine 0.69 Estim Creat Clear Calc 94.36 Est GFR (MDRD) Af Amer 118 Est GFR (MDRD) Non-Af 97 BUN/Creatinine Ratio 5.8 L Glucose 105 Calcium 8.4 L Magnesium 2.6 Medical Necessity - Tobacco Use Smoking Status: Never smoker Assessment/Plan POD#7 s/p [place] ileus seems to be improving Xrays reviewed, more gas in colon, NG w/ less output and less solids. Less nausea. Tolerated tube clamped for approx 7 hrs yesterday ok for ice chips and sips of clears, if doing well in am ok to give full clears Cont. to ambulate decrease IVF rate lrepeat labs/xrays in am
[2018-02-06 20:13] VITALS: BP 117/69; PULSE 79; RESP 17; TEMP 36.8; O2SAT 95
[2018-02-06] MEDS: guaiFENesin Dm 10 ML UDC 5 ML PO (23:35)
[2018-02-06] MEDS: Zolpidem Tartrate 5 MG Tablet PO (23:35)
[2018-02-07 05:19] VITALS: BP 98/60; PULSE 79; RESP 16; TEMP 37.3; O2SAT 96
[2018-02-07 06:19] LABS: Anion Gap 8 (5-15); BUN 6 mg/dL (7-18); BUN/Creat Ratio 9.1 RATIO (10-20); Calcium,Total 8.4 mg/dL (8.5-10.1); Chloride 107 mmol/L (98-107); Creatinine, Serum 0.66 mg/dL (0.55-1.02); EST Glomerular Filtration Rate 102 mL/min (>60); Est Glom Filt Rate - Afr Amer 124 mL/min (>60); Estimated Creatinine Clearance 98.65 ml/min; Glucose 100 mg/dL (74-106); Magnesium 2.5 mg/dL (1.6-2.6); Potassium 4.2 mmol/L (3.5-5.1); Sodium Level 139 mmol/L (136-145)
[2018-02-07] MEDS: Acetaminophen 650 MG/20 ML UDC PO ×2 (06:32→12:52)
[2018-02-07 06:38] LABS: Hematocrit 33.5 % (37-47); Hemoglobin 10.7 g/dl (12.0-15.0); Mean Corp Hgb Conc 31.9 g/gl (32-36); Mean Corpuscular Hgb 28.8 pg (27.0-32.0); Mean Corpuscular Volume 90.1 fL (81-99); Mean Platelet Vol. 9.8 fl (6.2-12.0); Platelet Count 434 K/mm3 (150-450); RBC Distribution Width CV 13.4 % (11.6-14.6); RBC Distribution Width SD 43.1 fl (35.1-43.9); Red Blood Count 3.72 M/mm3 (4.2-5.4); White Blood Count 10.4 K/mm3 (4.4-11.0)
[2018-02-07 06:41] LABS: Scan Indicated on CBC? Y/N NO
--- NOTE | 2018-02-07 07:00 | RAD_ITS ---
STUDY: X-RAY - ABDOMEN/PELVIS REASON FOR EXAM: Female, 47 years old. Abdominal distention. TECHNIQUE: AP supine and upright views of the abdomen and pelvis. COMPARISON: Comparison is made with prior study dated February 06, 2018. FINDINGS: Normal visualized lung bases. The nasogastric tube has been removed. At this time, there is less gaseous distention of small bowel with less air fluid levels. There is no demonstrated free abdominal air. There is evidence of calcified gallstones. The visualized liver, spleen and kidneys are grossly normal in size and morphology. Normal soft tissue structures. Normal visualized osseous structures. RAD/Abd Inc Decub and/or Erect IMPRESSION: There has been an improvement in the gaseous pattern as described. Residual air-fluid levels persist. Electronically Signed: Lei Jimenez MD at 10:57 EDT Tel [phone], Service support ,
--- NOTE | 2018-02-07 08:53 | PCM.PN.OB ---
Subjective: She reports less nausea. Also she is passing more gas and reports less bloating. No BM since yesterday. Overall she feels better. - Physical Exam General: Alert, Oriented x3 Abdomen: Soft, Non Tender - minimal to no distension; incision - c/d/i Extremities: No Calf Tenderness Vital Signs Temp Pulse Resp BP Pulse Ox 99.1 F 79 16 98/60 96 02/07/18 05:19 02/07/18 05:19 02/07/18 05:19 02/07/18 05:19 02/07/18 05:19 Oxygen Delivery Method Room Air Weight: 183 lb 3.266 oz Body Mass Index (BMI) 28.8 Intake and Output for Last 24 Hours 02/05/18 02/06/18 02/07/18 23:59 23:59 23:59 Intake Total 2447 / 2447 2405 / 2405 458 / 458 Output Total 3500 / 3500 3250 / 3250 Balance -1053 / -1053 -845 / -845 458 / 458 Laboratory Tests Past 24 Hrs 02/06/18 02/07/18 02/07/18 05:28 05:15 05:15 WBC 10.4 RBC 3.72 L Hgb 10.7 L Hct 33.5 L MCV 90.1 MCH 28.8 MCHC 31.9 L RDW 13.4 RDW Differential 43.1 Plt Count 434 MPV 9.8 Sodium 139 Potassium 4.2 Chloride 107 Carbon Dioxide 24.0 Anion Gap 8 BUN 6 L Creatinine 0.66 Estim Creat Clear Calc 98.65 Est GFR (MDRD) Af Amer 124 Est GFR (MDRD) Non-Af 102 BUN/Creatinine Ratio 9.1 L Glucose 100 Calcium 8.4 L Magnesium 2.6 2.5 Medical Necessity - Tobacco Use Smoking Status: Never smoker Assessment/Plan 47yo female s/p [place] with ileus GI - patient clinically improving. Await read on Xray. Consider advancing to full clears. updated Routine medical care
[2018-02-07 09:39] VITALS: BP 115/74; PULSE 79; RESP 16; TEMP 36.6; O2SAT 100
--- NOTE | 2018-02-07 11:00 | NURSING ---
page out for dr louis for abd xray results
[2018-02-07] MEDS: guaiFENesin Dm 10 ML UDC 5 ML PO ×2 (12:52→20:29)
[2018-02-07 14:00] VITALS: BP 109/72; PULSE 80; RESP 16; TEMP 37.1; O2SAT 98
[2018-02-07 20:00] VITALS: BP 119/71; PULSE 97; RESP 16; TEMP 36.9; O2SAT 99
[2018-02-07] MEDS: Ibuprofen 600 MG Tablet PO (20:28)
--- NOTE | 2018-02-07 21:43 | NURSING ---
pt c/o having increased urgency with urination but is not voiding very much at a time. pt also c/o having burning. stated it feels like she is getting a uti. pt obtained a clean catch ua/c&s. sent to lab, will call the dr for an order.
[2018-02-07] MEDS: Zolpidem Tartrate 5 MG Tablet PO (22:01)
[2018-02-08 01:56] LABS: Mucous, Urine 0 SEEN /hpf (<or=2+)
[2018-02-08 01:57] LABS: Color, Urine Yellow (Yellow); Glucose, Dipstick Normal (Normal); Ketone-Dipstick Negative (Negative); Leukocyte Esterase-Dipstick 500 /ul (Negative); Nitrite-Dipstick Positive (Negative); Occult Blood-Urine 150 /ul (Negative); Protein-Dipstick 15 mg/dl (Negative); Urine Bilirubin Dipstick Negative (Negative); Urine Clarity Sl. Cloudy (Clear); Urine Urobilinogen Normal (Normal)
[2018-02-08 02:00] VITALS: BP 115/68; PULSE 78; RESP 16; TEMP 36.8; O2SAT 96
[2018-02-08 02:04] LABS: Bacteria 2+ /hpf (None Seen); Squamous Epithelial Cells - UA 0-5 SEEN /hpf (5-10); White Blood Cells 25-50 SEEN /hpf (0-5)
[2018-02-08 02:05] LABS: Red Blood Cells-Urine 5-10 SEEN /hpf (0-5)
[2018-02-08] MEDS: LORazepam 0.5 MG Tablet PO (02:30)
[2018-02-08] MEDS: BENZOCAINE/MENTHOL 1 LOZENGE 2 LOZENGE MUCOUS MEM (03:23)
[2018-02-08] MEDS: Ibuprofen 600 MG Tablet PO ×2 (03:23→13:46)
[2018-02-08 07:36] VITALS: BP 100/62; PULSE 86; RESP 16; TEMP 37; O2SAT 97
--- NOTE | 2018-02-08 08:39 | PCM.PN.OB ---
Subjective: pain minimal. No VB/. Some dysuria intermittently. Loose stools x3 overnight. No N/V. - Physical Exam General: Alert, Cooperative, No apparent distress Abdomen: Soft, Distended - minimally, softly, Tender - minimally Skin: Incision - clean, dry and intact Vital Signs Temp Pulse Resp BP Pulse Ox 98.6 F 86 16 100/62 97 02/08/18 07:36 02/08/18 07:36 02/08/18 07:36 02/08/18 07:36 02/08/18 07:36 Oxygen Delivery Method Room Air Weight: 83.1 kg Body Mass Index (BMI) 28.8 Intake and Output for Last 24 Hours 02/06/18 02/07/18 02/08/18 23:59 23:59 23:59 Intake Total 2405 / 2405 1834 / 1834 550 / 550 Output Total 3250 / 3250 300 / 300 300 / 300 Balance -845 / -845 1534 / 1534 250 / 250 Laboratory Tests Past 24 Hrs 02/07/18 21:05 Urine Color Yellow Urine Clarity Sl. Cloudy Urine pH 5.0 Ur Specific [place] 1.020 Urine Protein 15 H Urine Glucose (UA) Normal Urine Ketones Negative Urine Occult Blood 150 H Urine Nitrite Positive H Urine Bilirubin Negative Urine Urobilinogen Normal Ur Leukocyte Esterase 500 H Urine RBC 5-10 SEEN Urine WBC 25-50 SEEN Ur Squamous Epith Cells 0-5 SEEN Urine Bacteria 2+ Urine Mucus 0 SEEN Medical Necessity - Tobacco Use Smoking Status: Never smoker Assessment/Plan POD#8 s/p [place] w/ resolving ileus adv diet to full liquids as tolerate saline lock IV no need for labs or films at this time 'likely UTI. cont. cipro wait for culture
[2018-02-08] MEDS: Ciprofloxacin 500 MG Tablet PO ×2 (10:58→20:56)
[2018-02-08] MEDS: Phenazopyridine 95 MG Tablet 190 MG PO ×2 (10:59→21:02)
[2018-02-08] MEDS: Scopolamine 1mg/72hr Patch 1 PATCH TD (10:59)
[2018-02-08 11:05] VITALS: BP 108/75; PULSE 81; RESP 16; TEMP 36.4; O2SAT 98
--- NOTE | 2018-02-08 13:38 | CASEMGMT ---
RN CM followed up with patient regarding discharge needs. Patient denies needs at this. RN CM remain available shoudl discharge needs arise.
[2018-02-08 14:20] VITALS: BP 129/62; PULSE 84; RESP 16; TEMP 37.1; O2SAT 95
[2018-02-08 20:30] VITALS: BP 109/69; PULSE 78; RESP 18; TEMP 36.8; O2SAT 97
[2018-02-08] MEDS: Zolpidem Tartrate 5 MG Tablet PO (21:05)
[2018-02-09 02:30] VITALS: BP 106/62; PULSE 81; RESP 18; TEMP 37.3; O2SAT 96
--- NOTE | 2018-02-09 07:20 | PCM.PN.OB ---
Subjective: pt seen at bedside, doing well. pt reports she is feeling well today. pt reports + flatus, no nausea or vomiting overnight. pt reports soft stools overnight. pt had full liquid diet last night- will have regular today for breakfast and lunch. Pt reports UTI symptoms are improving. pt reports good pain control from abdominal incision sites. - Physical Exam General: Alert, Oriented x3 Abdomen: Soft, Non Tender, Non-Distended, - - incision sites are dry and intact Extremities: No Calf Tenderness Vital Signs Temp Pulse Resp BP Pulse Ox 99.1 F 81 18 106/62 96 02/09/18 02:30 02/09/18 02:30 02/09/18 02:30 02/09/18 02:30 02/09/18 02:30 Oxygen Delivery Method Room Air Weight: 83.1 kg Body Mass Index (BMI) 28.8 Intake and Output for Last 24 Hours 02/07/18 02/08/18 02/09/18 23:59 23:59 23:59 Intake Total 1834 / 1834 1000 / 1000 960 / 960 Output Total 300 / 300 650 / 650 1600 / 1600 Balance 1534 / 1534 350 / 350 -640 / -640 Medical Necessity - Tobacco Use Smoking Status: Never smoker Assessment/Plan POD#9 s/p [place], Bilateral salpingectomy, Right oophorectomy with post op Ileus that prolonged her hospital stay and UTI now improving 1) Urine culture pending- continue cipro 2) regular diet today 3) VS reviewed- stable 4) plan for dc after lunch if tolerates regular diet 5) dc instructions reviewed with patient
--- NOTE | 2018-02-09 07:24 | PCM.DC.BLA ---
Discharge Summary Date of Admission: 01/31/18 Date of Discharge: 02/09/18 Summary: Pt underwent attempted TLH but was converted to [place], bilateral salpingectomy, right oophorectomy by Dr. Lizzy Glass- Pt started having nausea and was diagnosed on POD#2 with post op ileus. Pt received NG tube and continued expectant mgmt with NPO. During this hospital stay patient c/o UTI symptoms- was started on cipro until urine culture results back. pt improved with slow advancement of diet and discharged home on POD#9 in stable condition.
[2018-02-09 08:22] VITALS: BP 129/81; PULSE 82; RESP 18; TEMP 36.2; O2SAT 98
[2018-02-09] MEDS: Ciprofloxacin 500 MG Tablet PO (08:24)
[2018-02-09] MEDS: Ibuprofen 600 MG Tablet PO (08:30)
--- NOTE | 2018-02-09 10:55 | PCA ---
pt out walking in the [place]
== END 2018-02-09 11:37 | disposition home or self-care (01) | DRG 742 ==
LOC: SDC 10:21
PROVIDERS: Family Medicine; Admitting Provider Obstetrics & Gynecology; Family Provider Family Medicine; PCP Family Medicine; Visit Provider Obstetrics & Gynecology
PROC: 0UT94ZZ Resection of Uterus, Percutaneous Endoscopic Approach (ICD-10-PCS; principal; 2018-01-31 07:10)
DX: D25.1 Intramural leiomyoma of uterus (principal); K56.7 Ileus, unspecified; N39.0 Urinary tract infection, site not specified; N80.0 Endometriosis of uterus; F41.9 Anxiety disorder, unspecified
CPT/HCPCS: 36415; 74019; 80048; 81001; 81025; 83735; 85027; 85610; 85730; 86850; 86900; 87077; 87086; 87088; 87186; 88307; 97802; J7040; J7120; A4216; J2405; J7799

== ENCOUNTER → 2020-07-27 07:14 | Outpatient (CLI) | payer OTHER, SELFPAY ==
[2018-01-31 11:59] VITALS: BMI 28.8
--- NOTE | 2020-07-27 07:21 | MRI_ITS ---
STUDY: MRI RIGHT KNEE REASON FOR EXAM: Right knee pain since 06/27/2020, fall. TECHNIQUE: Standardized fat and water weighted pulse sequences were obtained in all 3 orthogonal planes. COMPARISON: None. FINDINGS: There is a small radial tear at the root of the posterior horn of the medial meniscus (T2 coronal images 11, 12; T2 axial image 18). There is a small focal chondral defect of the posterior aspect of the medial tibial plateau (T2 coronal image 15) measuring 0.45 cm in transverse dimension. There is very mild subchondral bone edema of the medial femoral condyle and tibial plateau (T2 coronal images 15-17), a stress phenomenon. There is a focus of avascular necrosis in the posterior nonweightbearing medial femoral condyle (T2 sagittal image 17) Normal medial collateral ligamentous complex (MCL). Normal distal semimembranosus, gracilis and semitendinosus tendons. Normal lateral meniscus. Normal hyaline cartilage of the lateral femorotibial compartment. There is a focus of avascular necrosis in the posterior nonweightbearing lateral femoral condyle (T2 sagittal image 7). Normal proximal tibiofibular articulation. Normal lateral collateral (fibular) ligament. Normal popliteus tendon. Normal biceps femoris tendon. Normal anterior cruciate ligament (ACL). Normal posterior cruciate ligament (PCL). Normal congruent patellofemoral articulation. There is low-grade chondromalacia patellae (T2 axial image 10). Normal medial and lateral patellar retinaculum. Normal visualized quadriceps tendon. Normal patellar tendon. Normal Hoffa''s fat pad. There is a small joint effusion. There is a small popliteal cyst with extravasation of fluid (T2 sagittal images 15-17). The otherwise visualized osseous structures are unremarkable. MRI/Lower Ext Joint Only (Routine) IMPRESSION: Small tear at the root of the posterior horn of the medial meniscus. Small focal chondral defect of the medial tibial plateau. Very mild subchondral bone edema of the medial femoral condyle and medial tibial plateau, a stress phenomenon. Low-grade chondromalacia patellae. Avascular necrosis of the medial and lateral femoral condyles. Small joint effusion. Small popliteal cyst with extravasation of fluid. Electronically Signed: Bogdan Good MD at 8:48 EDT Tel , Service support ,
== END ==
LOC: MRI 07:16
PROVIDERS: PCP Student in an Organized Health Care Education/Training Program; Referring Provider Nurse Practitioner Family; Visit Provider Nurse Practitioner Family
DX: M23.41 Loose body in knee, right knee (principal)
CPT/HCPCS: 73721

== ENCOUNTER 2020-08-10 09:24 | Day surgery (SDC) | payer OTHER, SELFPAY ==
[2020-08-02 11:11] VITALS: BMI 25.6
[2020-08-10] VITALS (8 sets, daily range): BP systolic 109–146; BP diastolic 65–75; PULSE 63–80; RESP 16–18; TEMP 36.1–36.4; O2SAT 93–100; BMI 25.4
--- NOTE | 2020-08-10 07:17 | RAD_ITS ---
STUDY: X-RAY - RIGHT KNEE REASON FOR EXAM: Female, 49 years old. MEDIAL MENISCUS REPAIR TECHNIQUE: Single lateral C-arm view(s) of the knee. COMPARISON: None. FINDINGS: Limited lateral C-arm film was performed as the patient has undergone medial meniscal repair. No plain film evidence of intraoperative abnormality RAD/Knee 1 or 2 Views IMPRESSION: Medial meniscal repair Electronically Signed: David Meza MD at 16:59 EDT , Service support ,
[2020-08-10] MEDS: Lactated Ringers 1,000 ML 100 ML IV (10:13)
[2020-08-10] MEDS: Bupiv/Epi 0.5% Mpf 30 ML Vial (13:13)
[2020-08-10] MEDS: Epinephrine (1 mg/ml) 1 MG/ML VIAL (13:13)
[2020-08-10] MEDS: morphine PF (epidural) 5 MG/10 ML Vial (13:34)
[2020-08-10] MEDS: Bupivacaine 0.5% PF 10 ML VIAL (13:34)
[2020-08-10] MEDS: MethylPREDNISolone Acetate 80 MG/ML Vial (13:35)
--- NOTE | 2020-08-10 13:52 | DCINST_ITS ---
Discharge Diet: No Restrictions Weight Bearing Status: Weight bearing as tolerated Keep extremity elevated above heart level: Operative Extremity Call your doctor if you observe: Shortness of breath, Chest pain Additional Instructions: Ice and elevate next 72 hours .keep dressing on clean and dry for 48 hours then may remove begin showering daily but do not submerge in tub or pool. After shower may apply Band-Aids . Encourage knee range of motion weightbearing as tolerated, use crutches until confident in knee then may discontinue. No strenuous activity. When not ambulating keep iced and elevated next 72 hours. Call with any questions or concerns. Allergies/Adverse Reactions: Allergies buspirone [From BuSpar] Allergy (Verified 08/10/20 09:54) Shortness of breath PT PASSES OUT nitrofurantoin [From Macrobid] Allergy (Verified 08/10/20 09:54) Hives paroxetine [From Paxil] Allergy (Verified 08/10/20 09:54) Hives Penicillins Allergy (Verified 08/10/20 09:54) Hives Sulfa (Sulfonamide Antibiotics) Allergy (Verified 08/10/20 09:54) Hives Medications to take at Discharge Naproxen Sodium [Naproxen Sodium Ds] 550 mg PO BID PRN PRN 01/24/18 melatonin 5 mg capsule 5 mg PO QHS 08/02/20 multivitamin 1 cap PO DAILY 08/02/20 tramadol 50 mg tablet 50 mg PO DAILY 08/02/20 Ibuprofen 200 mg PO PRN PRN 08/03/20 Oxycodone [Oxyir] 5 mg PO Q4H PRN PRN #40 tab 08/10/20 The following prescriptions were given: Oxycodone [Oxyir] 5 mg PO Q4H PRN PRN #40 tab PRN Reason: Pain Score 6-10 Transmission Status: Sent to [facility] Primary Care Physician: Jesse Cherry DO [Primary Care Provider] - Test Results: Test results from this visit will be discussed in further detail at your follow- up appointment, if applicable. Please Follow Up With: Robert Portillo DO - 2 weeks
--- NOTE | 2020-08-10 13:52 | PCM.HP.BLA ---
History and Physical Date of Admission: 08/10/20 Intake Vital Signs 08/02/20 Height 5 ft 5 in 08/02/20 Weight: 154 lb 08/02/20 BMI 28.8 Intake Visit Reasons: RIGHT KNEE Is patient in pain?: Yes Pain scale (1-10): 5 Allergies nitrofurantoin [From Macrobid] Allergy (Verified 08/02/20 11:12) Hives paroxetine [From Paxil] Allergy (Verified 08/02/20 11:12) Hives Penicillins Allergy (Verified 08/02/20 11:12) Hives Sulfa (Sulfonamide Antibiotics) Allergy (Verified 08/02/20 11:12) Hives Medications Naproxen Sodium [Naproxen Sodium Ds] 550 mg PO BID PRN PRN 01/24/18 [History Confirmed 08/02/20] melatonin 5 mg capsule mg PO 08/02/20 [History Confirmed 08/02/20] multivitamin 1 cap PO DAILY 08/02/20 [History] tramadol 50 mg tablet 50 mg PO DAILY 08/02/20 [History Confirmed 08/02/20] [facility] Surgical History (Updated 08/02/20 @ 11:13 by Mehnaz Mayer) H/O: (Acute) uterine ablation (Acute) Social History (Updated 08/02/20 @ 13:[address] Robert Portillo DO) Smoking Status: Never smoker HPI RIGHT KNEE: Details: Parts of this documentation were recorded by a scribe, this documentation accurately reflects the service provided and the decisions made by me, Dr. Robert Portillo DO 08/02/20 [id number]. VENICE HENDRICKS is a 49 year old F here today for right knee pain. Patient had has pain since June 27 when she fell fell off the sidewalk but is unsure of an exact mechanism. She felt a pop on the back of her knee at that time and immediate pain. She complains of pain into her calf and medial knee. Patient has swelling over her medial knee. Patient has popping and clicking, and catching which is painful. She complains of knee instability. She is unable to ambulate stairs due to pain. Patient had xrays at [facility] and an MRI at [facility]. She denies any injections, physical therapy. She tried a knee brace from her PCP which made her leg go to sleep. She is taking tramadol and ibuprofen for pain. Denies any history of steroid use, drug or alcohol use or scuba diving. ROS Musc Reports joint pain, Reports joint swelling, Reports stiffness Skin/Breast Reports system reviewed and no additional complaints, except as docu Neuro Yes system reviewed and no additional complaints, except as docu Ortho Exam Right Knee Skin/Wound: Yes CDI, No erythema, No ecchymosis Homans Sign: No 1+: Effusion Knee ROM: Yes ROM-Extension -20 to 0 (-5), Yes ROM-Flexion 0-140 (120) Examination: Yes Med jt line tenderness, No Lat jt line tenderness, Yes Iesha's Test Stability: NML: Anterior Drawer, NML: Posterior Drawer, NML: Valgus 30, NML: Varus 30 Patella Grind: Yes KNEE: mild patellar grind, no patellar instability. Supplemental Info 07/27/2020 MRI Right knee:Posterior root medial meniscus tearChondral defect medial tibial plateau, Stress phenomenon edemaMedial tibial plateauFocus of avascular necrosis Posterior aspect of both medial and lateral femoral condyle small Small joint effusion, Chondromalacia patella Assessment & Plan Problems 1. Acute medial meniscus tear of right knee, initial encounter S83.241A 2. Avascular necrosis M87.00 3. 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 Spoke with her about avascular necrosis menscial tearing and condral injury. Her symptoms are typical with a medial meniscus tear. Recommended surgery for meniscus repair vs meniscectomy, and/or a microfracture of medial tibial plateau. Spoke with her about the surgery and recovery. Patient will be non-weightbearing for 6 weeks for a meniscus repair or microfracture. With retro-grade drilling of her AVN she is unable to squat for 6 weeks . Reviewed the pre-operative plans with the patient. Risks and benefits of the procedure were fully explained, including but not limited to infection, neurovascular injury, continued pain, arthritis, stiffness, need for further surgery, re-injury, DVT, PE, general risks of anesthesia, and loss of limb or life. The patient understands all the risks and does wish to proceed with written consent. Follow up for 2 week post op or sooner if pain, swelling, numbness or associated symptoms, or concerns develop. All questions answered. Patient in agreement of plan. Coding Level of Care Code Off vis,new,level 3 Diagnoses Acute medial meniscus tear of right knee, initial encounter S83.241A ??Encounter type: initial encounter Avascular necrosis M87.00 Defect of articular cartilage M24.10 I have re-examined the patient. There are no clinical changes since date of exam I have re-examined the patient. There are no clinical changes since date of exam
--- NOTE | 2020-08-10 13:53 | PCM.OPRPT ---
Report of Operation Date of Procedure: 08/10/20 Description of Surgical Findings:: Preop diagnosis: Right knee small radial tear posterior horn medial meniscus DJD avascular necrosis medial femoral condyle lateral femoral condyle Postoperative diagnosis: Small radial tear posterior root medial meniscus grade 3 cartilage wear diffuse medial compartment and Soto femoral, AVN medial and lateral femoral condyle Procedure: Arthroscopic partial medial meniscectomy chondroplasty retrograde drilling of avascular necrosis medial and lateral femoral condyle Anesthesia: General Estimated blood loss: [5] mL Tourniquet time: 36 minutes 300 mmHg Complications: none Indication for procedure: 49-year-old female patient who had an injury to her knee stepping on a sidewalk who felt a pop and has had continued pain she did have MRI evidence of a small radial tear of the medial meniscus and avascular necrosis small lesions of the medial and lateral femoral condyle in addition to some cartilage wear in the knee. We did discuss surgical versus nonsurgical intervention extensively the patient did wish to proceed with an elective arthroscopic surgery to attempt to alleviate the symptoms. Risk benefits and alternatives of the procedure were reviewed including risk of bleeding infection nerve artery tissue damage need for further surgery continued pain and expected postoperative course. Procedure: The patient was met in the preoperative holding area. The operative extremity was identified by both patient and physician and family and marked. Patient was brought back to the operating room on a wheeled cart and transferred to the operating table in the supine position. Anesthesia was started. A well-padded tourniquet was placed on the operative extremity. A lower extremity leg rogers was secured to the operative extremity. The contralateral extremity was well-padded and the end of the bed was flexed to 90 degrees. The patient was prepped and draped in the usual sterile fashion. A timeout was called to ensure the proper patient, procedure, and extremity were being contemplated. 0.5% Marcaine with epinephrine was injected into the planned incisional areas under the skin only. An Esmarch was used to exsanguinate the extremity and the tourniquet was inflated. An 11 blade scalpel was used to make a stab incision in the anterior lateral portal. The arthroscope was inserted into the intercondylar notch and inflow and outflow tubes were attached. Arthroscopic visualization began. The medial compartment was entered. An 18-gauge spinal needle was used to establish the placement for anterior medial portal. An 11 blade scalpel was used to make a stab incision. Blunt probe was inserted followed by a meniscal probe. There was a very small radial tear in the posterior root of the medial meniscus this was debrided with a shaver there was no instability to the meniscal root there was however diffuse grade 3 cartilage wear of the medial femoral condyle gentle chondroplasty was performed of loose cartilage flaps the ACL was inspected and was found to be intact the lateral compartment did have grade 3 cartilage wear of the lateral tibial plateau however no chondroplasty was performed there was noted to be grade 3 cartilage wear throughout the patellofemoral joint gentle chondroplasty was performed there was no loose bodies in the medial lateral gutters at this point the attention was turned toward the avascular necrosis part of the case and the knee was brought to extension legholder was released and a spinal needle was used to position the 3/32 K wire and an extra-articular orientation visualized under arthroscopy to ensure no cartilage damage this was directed on both AP and lateral fluoroscopic images to the avascular necrosis of the medial femoral condyle this was then repeated for the lateral femoral condyle the knee was thoroughly irrigated and drained intra-articular injection of 40 mg Depo-Medrol 4 mg of morphine and 0.25% Marcaine plain was injected intra-articularly all counts were correct suture portals were closed with 3-0 nylon dressing was applied to form of Xeroform 4 x 4 ABD web roll and an Prakash wrap patient tolerated procedure well no intraoperative complications
== END 2020-08-10 16:45 | disposition home or self-care (01) ==
LOC: SDC 09:25 → AC 09:26
PROVIDERS: PCP Student in an Organized Health Care Education/Training Program; Referring Provider Orthopaedic Surgery; Visit Provider Orthopaedic Surgery
PROC: (CPT 29870; principal; 2020-08-10 11:10)
DX: S83.241A Other tear of medial meniscus, current injury, right knee, initial encounter (principal); M87.00 Idiopathic aseptic necrosis of unspecified bone; M17.11 Unilateral primary osteoarthritis, right knee; W19.XXXA Unspecified fall, initial encounter; Y93.9 Activity, unspecified; Y92.9 Unspecified place or not applicable; Z78.0 Asymptomatic menopausal state; Z86.2 Personal history of diseases of the blood and blood-forming organs and certain disorders involving the immune mechanism
CPT/HCPCS: 01400; 29881; 73560; 76000; J7120; J2405

== ENCOUNTER 2022-04-30 08:39 | Emergency (ER) | payer OTHER, SELFPAY ==
[2022-04-30 08:40] VITALS: BP 157/100; PULSE 73; RESP 14; TEMP 36.8; O2SAT 99; BMI 25.8
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
== END 2022-04-30 09:33 | disposition home or self-care (01) ==
LOC: ED 09:19
PROVIDERS: Emergency Provider Emergency Medicine; PCP Student in an Organized Health Care Education/Training Program; Visit Provider Emergency Medicine
DX: S05.11XA Contusion of eyeball and orbital tissues, right eye, initial encounter (principal); Y04.8XXA Assault by other bodily force, initial encounter
CPT/HCPCS: 99282